=== PATIENT | female | born 2000 | race Caucasian/White ===

== ENCOUNTER 2020-07-02 21:33 | Emergency (ER) | payer SELFPAY ==
[~2020-07-02] VITALS: Ht 162.6 cm; Wt 47.2 kg
[2020-07-02 22:00] VITALS: Ht 162.6 cm; Wt 47.2 kg
[2020-07-02 23:07] VITALS: BP 109/49
== END 2020-07-02 23:07 | disposition home or self-care (01) ==
LOC: ED 21:33
DX: F41.9 Anxiety disorder, unspecified (principal); G40.89 Other seizures; F31.9 Bipolar disorder, unspecified; Z88.6 Allergy status to analgesic agent